=== PATIENT | male | born 1960 | race Hispanic/Latino ===

== ENCOUNTER 2018-06-30 14:45 | Emergency (ER) | payer OTHER ==
[2018-06-30 14:49] VITALS: TEMP 97.6
--- NOTE | 2018-06-30 15:42 | ED PDOC ---
Syncope/Near Syncope/Dizziness Time Seen by Provider: 06/30/18 15:13 Chief Complaint (Nursing): Dizziness/Lightheaded Chief Complaint (Provider): Dizziness History Per: Patient History/Exam Limitations: no limitations Onset/Duration Of Symptoms: Hrs ([employer]), Sudden Onset Current Symptoms Are (Timing): Better Fall Associated With With Symptoms: No Additional Complaint(s): August Frias is a 58 year old male, with no significant past medical history, who presents to the emergency department complaining of dizziness associated with a mild nausea onset prior to arrival. Patient suddenly had a sense of severe lightheadedness and felt like the room was spinning. Patient states he was just in the computer at the time with no exacerbating factor. However, symptoms worsen with quick movement of head or getting up from seated position. He reports having a sense of vertigo intermittently for the last x15 years but states the last few months episodes have increased in frequency and intensity. Patient states typically episodes would resolve after a few minutes. However, today it persisted for more than 30 min which prompted ED visit. He currently feels almost all better but continues to feel "out of it." He denies any vomiting, focal weakness, blurry vision or other medical complaints. PMD: RUBEN Cortez. Past Medical History Reviewed: Historical Data, Nursing Documentation, Vital Signs Vital Signs: Last Vital Signs Temp 97.6 F 06/30/18 14:48 Pulse 65 06/30/18 14:48 Resp 17 06/30/18 14:48 BP 137/83 06/30/18 14:48 Pulse Ox 99 06/30/18 14:48 - Medical History PMH: No Chronic Diseases, HTN - Surgical History Surgical History: No Surg Hx - Family History Family History: States: CAD - Social History Current smoker - smoking cessation education provided: No Alcohol: None Drugs: Denies - Home Medications Home Medications: Ambulatory Orders Medication Instructions Recorded Meclizine HCl 50 mg PO BID PRN #30 tablet 06/30/18 - Allergies Allergies/Adverse Reactions: Allergies Allergy/AdvReac Type Severity Reaction Status Date / Time No Known Allergies Allergy Verified 06/30/18 14:47 Review of Systems ROS Statement: Except As Marked, All Systems Reviewed And Found Negative Eyes: Negative for: Vision Change (blurry vision) Cardiovascular: Positive for: Light Headedness Gastrointestinal: Positive for: Nausea (mild). Negative for: Vomiting Neurological: Positive for: Dizziness. Negative for: Weakness Physical Exam - Reviewed Nursing Documentation Reviewed: Yes Vital Signs Reviewed: Yes - Physical Exam Appears: Positive for: Well, No Acute Distress Head Exam: Positive for: ATRAUMATIC, NORMAL INSPECTION, NORMOCEPHALIC Skin: Positive for: Normal Color, Warm, Dry Eye Exam: Positive for: Normal appearance, EOMI, PERRL. Negative for: Nystagmus Neck: Positive for: Normal, Painless ROM Cardiovascular/Chest: Positive for: Regular Rate, Rhythm. Negative for: Murmur Respiratory: Positive for: Normal Breath Sounds. Negative for: Respiratory Distress Gastrointestinal/Abdominal: Positive for: Normal Exam, Soft. Negative for: Tenderness Back: Positive for: Normal Inspection. Negative for: L CVA Tenderness, R CVA Tenderness, Vertebral Tenderness Extremity: Positive for: Normal ROM (all extremities). Negative for: Deformity Neurologic/Psych: Positive for: Alert, Oriented (x3), Cerebellar Tests (Normal finger to nose testing), Other (Ideal-Hallpike test elicits veritgenous s ymptoms.). Negative for: Motor/Sensory Deficits - Laboratory Results Result Diagrams: 06/30/18 15:48 06/30/18 15:48 - ECG ECG Rhythm: Positive for: Sinus Rhythm. Negative for: ST/T Changes Rate: 63 O2 Sat by Pulse Oximetry: 99 Medical Decision Making Medical Decision Making: Time: 15:13 Initial Impression: Vertigo Initial Plan: --Head w/o contrast [CT] --EKG --CMP --Magnesium --Phosphorus --TSH --CBC w/ differential --Antivert 50 mg PO --Reevaluation 16:[address] FINDINGS: HEMORRHAGE: A small subcortical 9 mm hyperdensity with punctate calcifications seen at the right frontal parietal junction suspicious for post infectious or post inflammatory related sequelae. A small primary brain neoplasm including potential oligodendroglioma is not excluded. An intraparenchymal meningioma is unlikely but not excluded either. Follow-up brain MRI without contrast is advised for added characterization. BRAIN: Otherwise, remaining brain parenchyma is unremarkable of a and below the tentorium including throughout the brainstem. There is no mass effect or suspicious extra-axial collection appreciated midline brain anatomy is normal. Posterior fossa contents appear unremarkable throughout. No atrophy or chronic microvascular ischemic changes. VENTRICLES: Unremarkable. No hydrocephalus. CALVARIUM: Unremarkable. PARANASAL SINUSES: Unremarkable as visualized. No significant inflammatory changes. MASTOID AIR CELLS: Unremarkable as visualized. No inflammatory changes. OTHER FINDINGS: None. IMPRESSION: A 9 mm mass is seen at the right frontoparietal junction potentially reflecting post inflammatory or post infectious residual lesion. Differential diagnosis consists of primary or even secondary malignancy though these are not favored. No prior imaging exists for comparison. Consider possible primary oligodendroglioma though other etiologies are a possibility nevertheless. Trace associated local hemorrhage is not excluded though there is no edema. Follow- up MRI with without contrast is advised. If prior brain imaging exists in this patient and can be retrieved for correlation, addend this report can be provided. Findings discussed with Dr. Almazan with written down and read back verification 06/30/2018 4:27 p.m.. 16:37 CT results discussed with patient at length and need for MRI for further evaluation. Patient wants a few minutes to think about. Patient is concerned about severe anxiety in MRI. Offered patient medication for anxiety relief. Scribe Attestation: Documented by Bucky Page, acting as a scribe for Jennie Almazan MD Provider Scribe Attestation: All medical record entries made by the Scribe were at my direction and personally dictated by me. I have reviewed the chart and agree that the record accurately reflects my personal performance of the history, physical exam, medical decision making, and the department course for this patient. I have also personally directed, reviewed, and agree with the discharge instructions and disposition. Time: 1833 MRI RESULTS FINDINGS: HEMORRHAGE: No evidence of acute intracranial hemorrhage. DWI: No evidence of an acute or early subacute infarction. BRAIN PARENCHYMA: There is a 7 mm round lesion with central T1 and T2 hyperintensity and peripheral T1 and T2 hypointense rim and corresponding increased magnetic susceptibility on gradient sequences suggestive of old blood products in the right posterior parietal subcortical white matter. There is a 5 mm linear area of increased magnetic susceptibility on gradient images in the left centrum semiovale. There is no evidence for surrounding vasogenic edema mass effect or midline shift. There are multiple T2/FLAIR hyperintense foci in the subcortical supratentorial white matter. There is no extra-axial fluid collection. VENTRICLES: The ventricles are normal in size, shape and configuration. CRANIUM: There is normal bone marrow signal pattern. ORBITS: Grossly unremarkable. PARANASAL SINUSES/MASTOIDS: Predominantly clear. VASCULAR SYSTEM: There are normal signal voids in the larger intracranial arteries. 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 IMPRESSION: 1. Findings likely represent a 7 mm cavernous malformation in the right po sterior parietal subcortical white matter. Metastasis and infectious/inflammatory etiologies are less likely differential consideration given absence of edema. MRI of the brain with intravenous contrast is recommended for definitive evaluation. 2. Mild subcortical supratentorial white matter changes are strictly nonspecific, the differential considerations include migraine headache effect, gliosis, early chronic microvascular changes, Lyme disease, vasculitis and demyelinating disease including multiple sclerosis. Clinical follow-up is advised. Time: 1912 -- Discussed with patient findings and emphasized importance of follow up with ENT specialist and neurologist by the end of the week for further evaluation and management. Patient reports symptoms have resolved at this time. Patient is stable for discharge home. Scribe Attestation: Documented by Lul Moreira, acting as a scribe for Jennie Almazan MD. Provider Scribe Attestation: All medical record entries made by the Scribe were at my direction and personally dictated by me. I have reviewed the chart and agree that the record accurately reflects my personal performance of the history, physical exam, medical decision making, and the department course for this patient. I have also personally directed, reviewed, and agree with the discharge instructions and disposition. Disposition - Clinical Impression Clinical Impression: Vertigo, Cavernous malformation - Patient ED Disposition Is Patient to be Admitted: No Counseled Patient/Family Regarding: Studies Performed, Diagnosis, Need For Followup, Rx Given - Disposition Disposition: Routine/Home Disposition Time: 19:13 Condition: IMPROVED Additional Instructions: ARRANGE APPOINTMENTS WITH ENT AND NEUROLOGIST BY THE END OF THE WEEK FOR FURTHER EVALUATION. PLEASE BRING YOUR RESULTS WITH YOU WHEN YOU VISIT THE SPECIALISTS. RETURN TO ER IMMEDIATELY FOR SEVERE HEADACHE, WEAKNESS, INTRACTABLE NAUSEA OR DIZZINESS, BLURRY VISION, DIFFICULTY WITH SPEECH OR WALKING, OR ANY OTHER WOR RISOME SYMPTOMS. Prescriptions: Meclizine HCl 50 mg PO BID PRN #30 tablet PRN Reason: Dizziness Instructions: Vertigo (a Type of Dizziness) (DC), Arteriovenous Malformations in the Brain (DC) Forms: [facility] ED School/Work Excuse
[2018-06-30 16:12] LABS: BASO % 0.3 % (0.0-2.0); EOS # 0.1 K/uL (0.0-0.7); EOS % 0.6 % (0.0-4.0); HEMOGLOBIN 14.1 g/dL (12.0-18.0); LYMPH # 0.9 K/uL (1.0-4.3); LYMPH % 7.1 % (20.0-40.0); MEAN CELL VOLUME 92.2 fl (80.0-94.0); MEAN CORPUSCULAR HEMOGLOBIN 31.4 pg (27.0-31.0); MEAN CORPUSCULAR HGB CONC 34.1 g/dL (33.0-37.0); MEAN PLATELET VOLUME 8.4 fl (7.2-11.7); MONO # 0.8 K/uL (0.0-0.8); MONO % 6.6 % (0.0-10.0); NEUT # 10.4 K/uL (1.8-7.0); NEUT % 85.4 % (50.0-75.0); PLATELET COUNT 209 K/uL (130-400); RBC 4.48 Mil/uL (4.40-5.90); RED CELL DISTRIBUTION WIDTH 12.6 % (11.5-14.5); WHITE BLOOD COUNT 12.2 K/uL (4.8-10.8)
[2018-06-30 16:23] LABS: BLOOD UREA NITROGEN 24 mg/dl (9-20); CALCIUM 9.6 mg/dL (8.4-10.2); GFR NON-AFRICAN AMERICAN > 60
--- NOTE | 2018-06-30 16:31 | CT ---
Date of service: 06/30/2018 PROCEDURE: CT HEAD WITHOUT CONTRAST. HISTORY: dizziness vertigo COMPARISON: None available. TECHNIQUE: Axial computed tomography images were obtained through the head/brain without intravenous contrast. Radiation dose: Total exam DLP = 826.38 mGy-cm. This CT exam was performed using one or more of the following dose reduction techniques: Automated exposure control, adjustment of the mA and/or kV according to patient size, and/or use of iterative reconstruction technique. FINDINGS: HEMORRHAGE: A small subcortical 9 mm hyperdensity with punctate calcifications seen at the right frontal parietal junction suspicious for post infectious or post inflammatory related sequelae. A small primary brain neoplasm including potential oligodendroglioma is not excluded. An intraparenchymal meningioma is unlikely but not excluded either. Follow-up brain MRI without contrast is advised for added characterization. BRAIN: Otherwise, remaining brain parenchyma is unremarkable of a and below the tentorium including throughout the brainstem. There is no mass effect or suspicious extra-axial collection appreciated midline brain anatomy is normal. Posterior fossa contents appear unremarkable throughout. No atrophy or chronic microvascular ischemic changes. VENTRICLES: Unremarkable. No hydrocephalus. CALVARIUM: Unremarkable. PARANASAL SINUSES: Unremarkable as visualized. No significant inflammatory changes. MASTOID AIR CELLS: Unremarkable as visualized. No inflammatory changes. OTHER FINDINGS: None. IMPRESSION: A 9 mm mass is seen at the right frontoparietal junction potentially reflecting post inflammatory or post infectious residual lesion. Differential diagnosis consists of primary or even secondary malignancy though these are not favored. No prior imaging exists for comparison. Consider possible primary oligodendroglioma though other etiologies are a possibility nevertheless. Trace associated local hemorrhage is not excluded though there is no edema. Follow-up MRI with without contrast is advised. If prior brain imaging exists in this patient and can be retrieved for correlation, addend this report can be provided. Findings discussed with Dr. Almazan with written down and read back verification 06/30/2018 4:27 p.m..
[2018-06-30 16:58] LABS: ALB/GLOB RATIO 1.2 (1.0-2.1); ALBUMIN 4.1 g/dL (3.5-5.0); ALT/SGPT 32 U/L (21-72); AST/SGOT 39 U/L (17-59)
--- NOTE | 2018-06-30 18:37 | MRI ---
Date of service: 06/30/2018 PROCEDURE: MRI BRAIN WITHOUT CONTRAST HISTORY: recurrent vertigo possible mass COMPARISON: 06/30/2018. TECHNIQUE: Multiplanar, multisequence MR images of the brain were obtained without intravenous contrast enhancement. FINDINGS: HEMORRHAGE: No evidence of acute intracranial hemorrhage. DWI: No evidence of an acute or early subacute infarction. BRAIN PARENCHYMA: There is a 7 mm round lesion with central T1 and T2 hyperintensity and peripheral T1 and T2 hypointense rim and corresponding increased magnetic susceptibility on gradient sequences suggestive of old blood products in the right posterior parietal subcortical white matter. There is a 5 mm linear area of increased magnetic susceptibility on gradient images in the left centrum semiovale. There is no evidence for surrounding vasogenic edema mass effect or midline shift. There are multiple T2/FLAIR hyperintense foci in the subcortical supratentorial white matter. There is no extra-axial fluid collection. VENTRICLES: The ventricles are normal in size, shape and configuration. CRANIUM: There is normal bone marrow signal pattern. ORBITS: Grossly unremarkable. PARANASAL SINUSES/MASTOIDS: Predominantly clear. VASCULAR SYSTEM: There are normal signal voids in the larger intracranial arteries. 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 IMPRESSION: 1. Findings likely represent a 7 mm cavernous malformation in the right posterior parietal subcortical white matter. Metastasis and infectious/inflammatory etiologies are less likely differential consideration given absence of edema. MRI of the brain with intravenous contrast is recommended for definitive evaluation. 2. Mild subcortical supratentorial white matter changes are strictly nonspecific, the differential considerations include migraine headache effect, gliosis, early chronic microvascular changes, Lyme disease, vasculitis and demyelinating disease including multiple sclerosis. Clinical follow-up is advised.
[2018-06-30 18:55] LABS: BANDS 5 % (0-2); EOSINOPHIL 1 % (0-7); LYMPHOCYTE 10 % (20-50); MONOCYTE 6 % (0-10); NEUTROPHIL 78 % (42-75); TOTAL CELLS COUNTED 100
[2018-06-30 18:56] LABS: PLATELET ESTIMATE NORMAL (NORMAL)
[2018-06-30 19:13] VITALS: BP 136/71; RESP 77; O2SAT 99
[2018-06-30 19:26] VITALS: PULSE 63
--- NOTE | 2018-07-01 12:49 | CARD ---
APPROVED REPORT Date of service: 06/30/2018 EKG Measurement Heart [id number] <Conclusion> Normal sinus rhythm Normal ECG
== END 2018-06-30 19:13 | disposition home or self-care (01) ==
LOC: H.ER 14:45
DX: R42 Dizziness and giddiness (principal); Q28.3 Other malformations of cerebral vessels; F41.9 Anxiety disorder, unspecified
CPT/HCPCS: 70450; 70551; 80053; 82948; 83735; 84100; 84443; 85025; 93005; 96374; 99285; J2060